=== PATIENT | female | born 1980 | race Caucasian/White ===

== ENCOUNTER 2018-03-07 20:45 | Inpatient (IN) | payer OTHER ==
[~2018-03-07] VITALS: Ht 162.6 cm; Wt 67.6 kg
[2018-03-07] MEDS ORDERED: PRENATAL TABLE1 EAC2 PO (21:45)
== END 2018-03-09 09:24 | disposition home or self-care, planned readmission (81) | DRG 779 ==
LOC: LDR 20:45 → OB/GYN 03-08 17:11
PROC: 10E0XZZ Delivery of Products of Conception, External Approach (ICD-10-PCS; principal; 2018-03-07)
PROC: 3E0P7VZ Introduction of Hormone into Female Reproductive, Via Natural or Artificial Opening (ICD-10-PCS; 2018-03-07)
PROC: 3E033VJ Introduction of Other Hormone into Peripheral Vein, Percutaneous Approach (ICD-10-PCS; 2018-03-07)
PROC: BY4CZZZ Ultrasonography of Second Trimester, Single Fetus (ICD-10-PCS; 2018-03-07)
DX: O03.4 Incomplete spontaneous abortion without complication (principal)

== ENCOUNTER 2019-02-18 06:16 | Day surgery (SDC) | payer OTHER ==
[~2019-02-18 06:16] MED LIST: LOVENOX40 MG/0.4 SUBCUTANEO; PRENATAL TABLE1 EAC2 PO
== END 2019-02-18 15:45 | disposition home or self-care (01) ==
LOC: CIR.AMB 06:16
DX: O02.1 Missed abortion (principal); Z3A.08 8 weeks gestation of pregnancy

== ENCOUNTER 2019-10-02 06:45 | Day surgery (SDC) | payer OTHER ==
[~2019-10-02 06:45] MED LIST changes: +CLARITI PO; +PROGESTER PO
== END 2019-10-02 10:40 | disposition home or self-care (01) ==
LOC: CIR.AMB 06:45
DX: O34.32 Maternal care for cervical incompetence, second trimester (principal)

== ENCOUNTER 2020-02-16 08:35 | Outpatient (CLI) | payer OTHER | END 2020-02-16 11:05 | disposition home or self-care (01) | LOC: NST 08:35 | PROVIDERS: ATTEND Obstetrics & Gynecology | DX: Z34.83 Encounter for supervision of other normal pregnancy, third trimester (principal) ==